=== PATIENT | female | born 1985 | race Caucasian/White ===

== ENCOUNTER 2016-08-15 15:25 | Emergency (ER) | payer SELFPAY ==
[2016-08-15 15:53] VITALS: BP 157/92
[2016-08-15] MEDS ORDERED: KETOROLAC TROMETHAMINE 30 MG/ML VIAL IM ONE (15:59)
[2016-08-15] MEDS ORDERED: oxyCODONE HCL/ACETAMINOPHEN 1 TAB TABLET PO ONE (15:59)
[2016-08-15] MEDS ORDERED: ORPHENADRINE CITRATE 30 MG/ML VIAL IM ONE (15:59)
[2016-08-15] MEDS ORDERED: oxyCODONE HCL/ACETAMINOPHEN 1 TAB TABLET ONE ×2 (16:03→16:06)
[2016-08-15] MEDS ORDERED: KETOROLAC TROMETHAMINE 30 MG/ML VIAL ONE (16:04)
[2016-08-15] MEDS ORDERED: ORPHENADRINE CITRATE 30 MG/ML VIAL ONE (16:04)
--- NOTE | 2016-08-15 16:28 | ERNOTE ---
Back Pain ER HPI Date of Service: 08/15/16 Presenting Symptoms: injury/pain to back Time Seen by Provider: 08/15/16 15:56 Source: patient Exam Limitations: no limitations Immunizations: IMMUNIZATION HX Immunizations Up to Date Yes History of Influenza Vaccine No Hx Pneumococcal Vaccination No Allergies/Adverse Reactions: Allergies No Known Allergies Allergy (Verified 08/15/16 15:53) Home Medications: HOME MEDICATIONS Ibuprofen [Motrin] 800 mg PO QID PRN 08/15/16 [Last Taken Unknown] Naproxen [Naprosyn] 500 mg PO BID #20 tablet 08/15/16 [Last Taken Unknown] Orphenadrine Citrate [Norflex] 100 mg PO Q12H #14 tablet.sa 08/15/16 [Last Taken Unknown] oxyCODONE HCL/ACETAMINOPHEN [Percocet 5 MG/325 MG] 1 tab PO Q8H #12 tablet 08/15 [Last Taken Unknown] Narrative: Patient comes due to a lower back pain that gets worse with movement. Patient has been carrying a 20lbs baby. Patient with no Hx of recent fall or Tx reported. Patient with no fever and no urinary retention reported by patient. Timing: Reports: constant Quality/Severity: Reports: aching, dullness, sharpness Location of pain: Reports: lower back Activities at Onset: Reports: none Recent Injury?: Reports: no Possible Precipitating Factor: Reports: other - carrying a baby Modifying Factors - (Improves): Reports: nothing Modifying Factors - (Worsens): Reports: upright position, movement to right, movement to left, movement flexion Associated Symptoms: Denies: fever/chills, sweating, constipation/incontinence, nausea/vomiting, problems urinating, difficulty walking, lightheadedness, numbess/weakness in legs Prior Treament: Denies: recently seen - patient denies having a primary care provider Review of Systems - Review of Systems Constitutional: Absent: recent illness, fever, chills, diaphoresis, weakness, fatigue, malaise, weight loss, fussy, decreased activity level EYE: Present: no symptoms reported ENT: Present: no symptoms reported Respiratory: Present: no symptoms reported Cardiology: Present: no symptoms reported Gastrointestinal/Abdominal: Present: no symptoms reported Genitourinary: Present: no symptoms reported Musculoskeletal: Present: back pain - lower back worse with ROM, muscle pain - lower back pain, muscle stiffness. Absent: neck pain, joint pain, joint swelling Skin: Present: no symptoms reported Neurological: Present: no symptoms reported Endocrine: Present: no symptoms reported Hematologic/Lymphatic: Present: no symptoms reported Psych: Present: no symptoms reported All Other Systems: All systems neg except as marked - Patient's Past Medical History Patient History - Medical: Headache, Migraines Patient History - Cardiac/Respiratory: No pertinent hx Patient History - Cancer: No Hx of Cancer Patient History - Surgical Procedures: Other Patient History - Other: None - Social History Living Situations: home Abuse History: No History of abuse Psych History: No pertinent hx Smoking Status: Never smoker Alcohol Use: none Drug Use: marijuana - Immunizations Immunizations Up to Date: Yes Hx Pneumococcal Vaccination: No History of Influenza Vaccine: No Physical Exam - Physical Exam General Appearance: Present: wd/wn, alert, no apparent distress Eye Exam: Normal inspection: bilateral Ears, Nose, Throat: Present: normal ENT inspection Neck: Present: normal inspection, nontender Respiratory: Present: no respiratory distress, normal breath sounds, chest nontender Cardiovascular/Chest: Present: regular rate, rhythm, no murmur, normal peripheral pulses Gastrointestinal/Abdominal: Present: normal bowel sounds. Absent: tenderness, distended, guarding, rebound, mass Back Exam: Present: normal inspection, decreased range of motion, muscle spasm - lower back bilateral area., other - Patient with no rash, no lesions, good L4 , L5, and S1 sensation and force.. Absent: CVA tenderness (R), CVA tenderness ( L), vertebral tenderness Extremity Exam: Present: normal inspection, non-tender, normal range of motion, no edema Neurological Exam: Present: alert, oriented, normal mood/affect, no motor/ sensory deficits Skin Exam: Present: normal color, warm/dry. Absent: diaphoresis, cyanosis, jaundice, skin rash Lymphatic Exam: Present: no adenopathy ED Progress - Vital Signs Patient's Vital Signs:: I have reviewed the patient's vital signs. Vital Signs: Vital Signs 08/15/16 15:50 Temperature 36.7 C Pulse Rate 100 Respiratory 16 Rate Blood Pressure 157/92 O2 Sat by Pulse 98 Oximetry - Progress/Reassessment Chief Complaint: Back Pain Progress:: Improved - Transfer of Care Expected Disposition: Discharge Plan - Plan Plan: Patient will need to get a Primary Care Provider and a Back Specialist. Physical Therapy is recommended for patient. Departure Clinical Impression: Muscle spasm Back pain Qualifiers: Back pain location: low back pain Chronicity: acute Back pain laterality: bilateral Sciatica presence: with sciatica Sciatica laterality: bilateral sciatica Qualified Code(s): M54.42 - Lumbago with sciatica, left side; M54.41 - Lumbago with sciatica, right side - Departure Disposition: Home self-care Condition: Stable Instructions: Back Pain, Adult, Herniated Disk, Sciatica, [id number], Muscle Cramps and Spasms, [id number] Additional Instructions: You will need further evaluation for your back and physical therapy is recommended. Prescriptions: Naproxen [Naprosyn] 500 mg PO BID #20 tablet Orphenadrine Citrate [Norflex] 100 mg PO Q12H #14 tablet.sa oxyCODONE HCL/ACETAMINOPHEN [Percocet 5 MG/325 MG] 1 tab PO Q8H #12 tablet
--- OUTSIDE RECORDS SUMMARY | 2016-08-15 17:00 | XMS REPORT | Continuity of Care Document ---
:1985 Author Organization [facility] ([facility]) Address [address] [address] Phone [phone] Care Team Providers Name Role Phone [place] Primary Care Provider [phone] Source Comments This disclosure is being made pursuant to the Care Everywhere program, applicable federal and state laws, and may not contain all informaitonavailable regarding this patient.[facility] ([facility]) Active Allergies and Adverse Reactions No Active Allergies Current Medications Prescription Sig. Disp. Refills Start Date End Date Status norgestimate-ethinyl take 1 Tab by mouth Active estradiol (ORTHO daily. TRI-CYCLEN LO) .18/.215/.25-25 mg-mcg tablet nabumetone (RELAFEN) 500 take 1 Tab by mouth 60 Tab 1 07/04/2009 Active mg tablet 2 times daily. Indications: hip bursitis Active Problems Problem Noted Date Obesity, unspecified 03/03/2008 Absence of menstruation 03/03/2008 Polycystic ovaries 03/03/2008 Thoracic or lumbosacral neuritis or radiculitis, unspecified 04/30/2006 Displacement of lumbar intervertebral disc without myelopathy 04/03/2006 Lumbago 04/03/2006 Immunizations Name Dates Previously Given Next Due Influenza, PF 07/25/2009 Novel Influenza H1N1 07/25/2009 Social History Tobacco Use Types Packs/Day Years Used Date Never Assessed Last Filed Vital Signs Vital Sign Reading Time Taken Blood Pressure 134/72 07/25/2009 8:24 AM [employer] Pulse 67 07/25/2009 8:24 AM [employer] Temperature 36.8 C (98.2 F) 07/25/2009 8:24 AM [employer] M[employer]ER Respiratory Rate - - Height 1.676 m (5' 6") 07/25/2009 8:24 AM [employer]ERE[employer] M[employer]ER Weight 109.7 kg (241 lb 13.5 oz) 07/25/2009 8:24 AM [employer]ERE[employer] MILLER Body Mass Index 39.05 07/25/2009 8:24 AM 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
--- OUTSIDE RECORDS SUMMARY | 2016-08-15 17:00 | XMS REPORT | Continuity of Care Document ---
:1985 Author Organization [facility] [address] Care Team Providers Name Role Phone Provider, None Per Patient Primary Care Provider Unavailable Source Comments This disclosure is being made pursuant to the IN[employer]OC[employer] program and maynot contain all information available regarding this patient.[facility] Active Allergies and Adverse Reactions No Known Allergies Current Medications Be aware that medications may not be up to date as of this document. Alwaysverify current medications with the patient. Prescription Sig. Disp. Refills Start Date End Date Status metoclopramide (REGLAN) Take 1 tablet by 12 tablet 0 04/21/2015 Active 10 MG tablet mouth 4 (four) times daily. Active Problems Not on file Social History Tobacco Use Types Packs/Day Years Used Date Current Every Day Smoker Cigarettes Last Filed Vital Signs Vital Sign Reading Time Taken Blood Pressure 100/56 04/21/2015 1:17 AM [employer] Pulse 80 04/21/2015 1:17 AM [employer] Temperature 36.4 C (97.5 F) 04/20/2015 4:48 PM [employer] Respiratory Rate 18 04/20/2015 11:47 PM [employer] Height - - Weight - - Body Mass Index - - Oxygen Saturation 100% 04/21/2015 1:17 AM [employer] Plan of Care Health Maintenance Due Date Last Done Comments Retired-Pertussis Vaccine Adult 2004 Retired-Tetanus Vaccine Adult 2004 Pap Smear 2006 Retired-INFLUENZA VACCINE 02/14/2015 Results from Last 3 Months Not on file
== END 2016-08-15 17:30 | disposition home or self-care (01) ==
LOC: ER 15:25
DX: M62.830 Muscle spasm of back (principal); M54.41 Lumbago with sciatica, right side